=== PATIENT | male | born 1975 | race African-American/Black ===

== ENCOUNTER 2019-03-12 19:44 | Emergency (ER) | payer BC ==
[~2019-03-12] VITALS: Ht 152.4 cm; Wt 86.2 kg
[2019-03-12 19:44] VITALS: TEMP 97.9
[2019-03-12 22:10] VITALS: BP 155/88
== END 2019-03-12 22:10 | disposition home or self-care (01) ==
LOC: ED 19:53
DX: S09.90XA Unspecified injury of head, initial encounter (principal); S29.9XXA Unspecified injury of thorax, initial encounter; S39.92XA Unspecified injury of lower back, initial encounter; W07.XXXA Fall from chair, initial encounter; Y92.511 Restaurant or cafe as the place of occurrence of the external cause
CPT/HCPCS: 96374; 99284; J1885

== ENCOUNTER 2019-03-12 19:44 | Outpatient (CLI) | payer BC | END 2019-03-12 19:45 | disposition short-term general hospital (02) | LOC: AMB 19:44 | DX: R52 Pain, unspecified (principal); W07.XXXA Fall from chair, initial encounter; Y92.511 Restaurant or cafe as the place of occurrence of the external cause | CPT/HCPCS: A0425; A0427 ==